=== PATIENT | male | born 1990 | race Caucasian/White ===

== ENCOUNTER 2020-09-01 09:19 | Emergency (ER) | payer SELFPAY ==
[~2020-09-01] VITALS: Ht 175.3 cm; Wt 193.0 kg
[2020-09-01 09:26] VITALS: BP 170/98
[2020-09-01] MEDS ORDERED: BACITRACIN ZINC OINT UDPKT TOP ONE (11:00)
[2020-09-01] MEDS ORDERED: TETANUS, DIPHTHERIA, PERTUSSIS VAC/PF 0.5ML (>7YR OLD) IM ONE (11:00)
[2020-09-01] MEDS ORDERED: ACETAMINOPHEN 325MG TABLET PO ONE (11:00)
== END 2020-09-01 11:18 | disposition home or self-care (01) ==
LOC: ER 10:34
DX: L03.031 Cellulitis of right toe (principal); I10 Essential (primary) hypertension
CPT/HCPCS: 90471; 90715; 99283